=== PATIENT | female | born 1980 | race Caucasian/White ===

== ENCOUNTER 2017-02-03 15:30 | Emergency (ER) | payer MEDICAID, OTHER ==
[2017-02-03 15:54] VITALS: RESP 20
--- NOTE | 2017-02-03 16:53 | CT ---
PROCEDURE: CT HEAD WITHOUT CONTRAST. HISTORY: fall COMPARISON: 03/09/2014 TECHNIQUE: Axial computed tomography images were obtained through the head/brain without intravenous contrast. Radiation dose: Total exam DLP = 769 mGy-cm. This CT exam was performed using one or more of the following dose reduction techniques: Automated exposure control, adjustment of the mA and/or kV according to patient size, and/or use of iterative reconstruction technique. FINDINGS: HEMORRHAGE: No intracranial hemorrhage. BRAIN: No mass effect or edema. Stable hypodensity noted in the left frontal subcortical white matter. VENTRICLES: Unremarkable. No hydrocephalus. CALVARIUM: Unremarkable. PARANASAL SINUSES: Unremarkable as visualized. No significant inflammatory changes. MASTOID AIR CELLS: Unremarkable as visualized. No inflammatory changes. OTHER FINDINGS: None. IMPRESSION: No acute hemorrhage.
[2017-02-03] MEDS ORDERED: Oxycodone/Acetaminophen 5/325 mg Tab PO STA (17:02)
[2017-02-03] MEDS ORDERED: Oxycodone/Acetaminophen 5/325 mg Tab ONE (17:05)
--- NOTE | 2017-02-03 17:26 | RAD ---
PROCEDURE: Radiographs of the Right Shoulder HISTORY: fall COMPARISON: None available. FINDINGS: BONES: No acute displaced fracture. The distal clavicle and underlying ribs appear intact. JOINTS: No acute dislocation. SOFT TISSUES: Soft tissues appear unremarkable. No evidence of radiopaque foreign body. IMPRESSION: No acute displaced fracture or dislocation evident. If symptoms persist or if there is continued clinical concern, x-ray follow-up in 7-10 days should be considered.
--- NOTE | 2017-02-03 17:27 | RAD ---
PROCEDURE: Radiographs of the right humerus. HISTORY: fall COMPARISON: None available. FINDINGS: BONES: No acute displaced fracture or dislocation. SOFT TISSUES: Unremarkable. No evidence of radiopaque foreign body. OTHER FINDINGS: None. IMPRESSION: No acute displaced fracture, dislocation, or significant joint effusion identified. If symptoms persist, or if there is continued clinical concern, x-ray follow-up in 7-10 days should be considered.
--- NOTE | 2017-02-03 17:31 | RAD ---
Indication: Fall Right hip with pelvis Comparison: None available Findings: No acute displaced fracture or dislocation identified. Sacroiliac joints appear intact. Mild constipation. Soft tissues appear unremarkable. No evidence of radiopaque foreign body. Impression: No acute displaced fracture or dislocation evident. If high clinical index of suspicion, suggest cross-sectional imaging for further evaluation. Otherwise, if symptoms persist or if there is continued clinical concern, x-ray follow-up in 7-10 days should be considered.
--- NOTE | 2017-02-03 18:19 | C.PDOC ---
History Of Present Illness 36 y/o female presents to ED who reports she fell off the bed 3 days ago. Patient states she might have lost consciousness, does not know, and states her whole right side hurts. Patient crying in the ER, states her boyfriend recently when asked why. Denies headache, dizziness, chest pain, SOB, nausea , vomiting, new weakness or numbness, or other associated symptoms. - HPI Chief Complaint (Nursing): Upper Extremity Problem/Injury History Per: Patient History/Exam Limitations: no limitations Onset/Duration Of Symptoms: Days Location Of Injury: Right: Arm, Hip, Shoulder Recent travel outside of the [place]: No Past Medical History Reviewed: Historical Data, Nursing Documentation, Vital Signs Vital Signs: Last Vital Signs Temp 98.1 F 02/03/17 18:52 Pulse 94 H 02/03/17 18:52 Resp 20 02/03/17 18:52 BP 104/71 02/03/17 18:52 Pulse Ox 99 02/03/17 18:52 - Medical History PMH: Migraine Family History: States: Unknown Family Hx - Social History Hx Tobacco Use: No Hx Alcohol Use: No Hx Substance Use: No - Immunization History Hx Tetanus Toxoid Vaccination: No Hx Influenza Vaccination: No Hx Pneumococcal Vaccination: No Review Of Systems Except As Marked, All Systems Reviewed And Found Negative. Constitutional: Negative for: Fever, Chills Respiratory: Negative for: Cough Gastrointestinal: Negative for: Nausea, Vomiting Musculoskeletal: Positive for: Shoulder Pain (R), Arm Pain (R), Other (Hip Pain , Right) Skin: Negative for: Rash Neurological: Negative for: Weakness, Numbness Physical Exam - Physical Exam Appears: Non-toxic, Other (tearful, in mild distress) Skin: Normal Color, Warm, Dry Head: Atraumatic, Normacephalic, No Swelling, No Abrasion, No Laceration Eye(s): bilateral: Normal Inspection, PERRL, EOMI Ear(s): Left: Normal, Right: Other (scaling, erythema to posterior ear) Nose: Normal Oral Mucosa: Moist Neck: Normal ROM, No Midline Cervical Tenderness, No Paracervical Tenderness, Supple Chest: Symmetrical, No Tenderness Cardiovascular: Rhythm Regular Respiratory: Normal Breath Sounds, No Rales, No Rhonchi, No Wheezing Gastrointestinal/Abdominal: Soft, No Tenderness Back: Normal Inspection Extremity: Capillary Refill (< 2 sec.), No Deformity, Other (R shoulder and right upper arm: (+) tenderness, decreased ROM. R hip: (+) tenderness. No erythema, bruises, or deformity. ) Extremity: Bilateral: Normal Color And Temperature Neurological/Psych: Oriented x3, Normal Speech, Normal Cognition ED Course And Treatment O2 Sat by Pulse Oximetry: 98 (RA) Pulse Ox Interpretation: Normal - Other Rad R Shoulder XR X-Ray: Viewed By Me, Read By Radiologist Interpretation: Accession No. : [id number]. Patient Name / ID : DEANGELO SAMS / [id number]. Exam Date : 02/03/2017 16:37:42 ( Approved ). Study Comment : Sex / Age : F / 36Y. Creator : Nimo Morrison MD. Dictator : Ctc Operator : Electric Razor Assembler : Nimo Morrison MD. Approver2 : Report Date : 02/03/2017 17:24:32. My Comment : . PROCEDURE: Radiographs of the Right Shoulder. HISTORY: fall. COMPARISON: None available. FINDINGS : BONES: No acute displaced fracture. The distal clavicle and underlying ribs appear intact. JOINTS: No acute dislocation. SOFT TISSUES: Soft tissues appear unremarkable. No evidence of radiopaque foreign body. IMPRESSION: No acute displaced fracture or dislocation evident. If symptoms persist or if there is continued clinical concern, x-ray follow-up in 7-10 days should be considered. R Humerus XR X-Ray: Viewed By Me, Read By Radiologist Interpretation: Accession No. : [id number]. Patient Name / ID : DEANGELO SAMS / [id number]. Exam Date : 02/03/2017 16:39:13 ( Approved ). Study Comment : Sex / Age : F / 36Y. Creator : Nimo Morrison MD. Dictator : Ctc Operator : Electric Razor Assembler : Nimo Morrison MD. Approver2 : Report Date : 02/03/2017 17:25:25. My Comment : . PROCEDURE: Radiographs of the right humerus. HISTORY: fall. COMPARISON: None available. FINDINGS: BONES: No acute displaced fracture or dislocation. SOFT TISSUES: Unremarkable. No evidence of radiopaque foreign body. OTHER FINDINGS: None. IMPRESSION: No acute displaced fracture, dislocation, or significant joint effusion identified. If symptoms persist, or if there is continued clinical concern, x-ray follow-up in 7-10 days should be considered R Hip XR X-Ray: Viewed By Me, Read By Radiologist Interpretation: Accession No. : [id number]. Patient Name / ID : DEANGELO SAMS / [id number]. Exam Date : 02/03/2017 16:40:20 ( Approved ). Study Comment : Sex / Age : F / 36Y. Creator : Nimo Morrison MD. Dictator : Ctc Operator : Electric Razor Assembler : Nimo Morrison MD. Approver2 : Report Date : 02/03/2017 17:30:09. My Comment : . Indication: Fall. Right hip with pelvis. Comparison: None available. Findings: No acute displaced fracture or dislocation identified. Sacroiliac joints appear intact. Mild constipation. Soft tissues appear unremarkable. No evidence of radiopaque foreign body. Impression: No acute displaced fracture or dislocation evident. If high clinical index of suspicion, suggest cross- sectional imaging for further evaluation. Otherwise, if symptoms persist or if there is continued clinical concern, x-ray follow-up in 7-10 days should be considered. - CT Scan/US CT Head Other Rad Studies (CT/US): Read By Radiologist, Radiology Report Reviewed CT/US Interpretation: Accession No. : [id number]. Patient Name / ID : DEANGELO SAMS / [id number]. Exam Date : 02/03/2017 16:19:58 ( Approved ). Study Comment : Sex / Age : F / 36Y. Creator : Melvin Gomes MD. Dictator : Melvin Gomes MD. Ctc Operator : Electric Razor Assembler : Melvin Gomes MD. Approver2 : Report Date : 02/03/2017 16:52:30. My Comment : . PROCEDURE: CT HEAD WITHOUT CONTRAST. HISTORY: fall. COMPARISON: 2013. TECHNIQUE: Axial computed tomography images were obtained through the head/brain without intravenous contrast. Radiation dose: Total exam DLP = 769 mGy-cm. This CT exam was performed using one or more of the following dose reduction techniques: Automated exposure control, adjustment of the mA and/or kV according to patient size, and/or use of iterative reconstruction technique. FINDINGS: HEMORRHAGE: No intracranial hemorrhage. BRAIN: No mass effect or edema. Stable hypodensity noted in the left frontal subcortical white matter. VENTRICLES: Unremarkable. No hydrocephalus. CALVARIUM: Unremarkable. PARANASAL SINUSES: Unremarkable as visualized. No significant inflammatory changes. MASTOID AIR CELLS: Unremarkable as visualized. No inflammatory changes. OTHER FINDINGS: None. IMPRESSION: No acute hemorrhage. Progress Note: Treated with Percocet and Toradol. R hip, R shoulder, R humerus x -rays and CT head ordered/reviewed - negative for acute abnormality. Patient given Xanax and observed in ER. On re-eval, pt feels much better, and is in no acute distress. Advised to f/u with PMD/clinic for further evaluation. Disposition - Disposition Referrals: [facility] [Outside] [facility] [Outside] Disposition: HOME/ ROUTINE Disposition Time: 18:16 Condition: STABLE Additional Instructions: Follow up with your PMD/Clinic within 1-2 days. Return to Ed if feel worse. Prescriptions: Mupirocin 2% Ointment [Bactroban Ointment] 1 appl TP BID #1 tube Ketoconazole 1 gm TP BID #30 cream..g. Ibuprofen [Motrin Tab] 600 mg PO Q8 #30 tab oxyCODONE/Acetaminophen [Percocet 5/325 mg Tab] 1 tab PO QID PRN #20 tab PRN Reason: Pain ALPRAZolam [Xanax] 0.25 mg PO TID #15 tab Instructions: Grief and Loss (ED), Contusion in Adults (ED) Forms: [facility] (Citizen Of [place]) - Clinical Impression Clinical Impression: Multiple contusions, Grief reaction - PA / BUSINESS SUPPORT / Resident Statement MD/DO has reviewed & agrees with the documentation as recorded. - Scribe Statement The provider has reviewed the documentation as recorded by the Scribe All medical record entries made by the Scribe were at my direction and personally dictated by me. I have reviewed the chart and agree that the record accurately reflects my personal performance of the history, physical exam, medical decision making, and the department course for this patient. I have also personally directed, reviewed, and agree with the discharge instructions and disposition.
[2017-02-03 18:53] VITALS: BP 104/71; PULSE 94; TEMP 98.1
[2017-02-03 19:36] VITALS: O2SAT 98
== END 2017-02-03 18:30 | disposition home or self-care (01) ==
LOC: C.ER 15:30
DX: T14.8 Other injury of unspecified body region (principal); W06.XXXA Fall from bed, initial encounter; F43.20 Adjustment disorder, unspecified
CPT/HCPCS: 70450; 73030; 73060; 73502; 96372; 99285; J1885

== ENCOUNTER 2017-02-07 12:41 | Emergency (ER) | payer MEDICAID, OTHER ==
[2017-02-07 12:51] VITALS: RESP 16; TEMP 98.1
[2017-02-07 14:00] VITALS: BP 128/81; PULSE 78
[2017-02-07 14:58] VITALS: O2SAT 100
== END 2017-02-07 13:59 | disposition home or self-care (01) ==
LOC: C.ER 12:41
DX: S90.822A Blister (nonthermal), left foot, initial encounter (principal); X58.XXXA Exposure to other specified factors, initial encounter; Y93.89 Activity, other specified; Y92.9 Unspecified place or not applicable

== ENCOUNTER 2017-02-15 12:00 | Emergency (ER) | payer MEDICAID, OTHER ==
[2017-02-15 12:25] VITALS: BMI 24.3
--- NOTE | 2017-02-15 13:09 | C.PDOC ---
History Of Present Illness 36 yr old female presents to the ER for evaluation of a blister to the plantar aspect of the left foot for the past 1 week. Patient reports she was seen on for same complaints and was drained than. Patient states the blister had worsened and she had drained it once her self. Patient states even after being drained, the blister keeps retuning, states she has been weight bearing on the foot on heel only. States she has been unable to follow up with podiatry due to insurance reasons. Denies fever, chills, nausea, vomiting, leg pain, weakness or numbness in the foot. Time Seen by Provider: 02/15/17 12:31 Chief Complaint (Nursing): Abnormal Skin Integrity History Per: Patient History/Exam Limitations: no limitations Onset/Duration Of Symptoms: Days Past Medical History Reviewed: Historical Data, Nursing Documentation, Vital Signs Vital Signs: Last Vital Signs Temp 98.3 F 02/15/17 17:56 Pulse 65 02/15/17 17:56 Resp 18 02/15/17 17:56 BP 100/61 02/15/17 17:56 Pulse Ox 100 02/15/17 17:56 - Medical History PMH: Migraine Family History: States: No Known Family Hx - Social History Hx Tobacco Use: No Hx Alcohol Use: No Hx Substance Use: No - Immunization History Hx Tetanus Toxoid Vaccination: No Hx Influenza Vaccination: No Hx Pneumococcal Vaccination: No Review Of Systems Constitutional: Negative for: Fever, Chills Gastrointestinal: Negative for: Nausea, Vomiting Musculoskeletal: Negative for: Leg Pain Skin: Positive for: Other ((+) Blister to the planter aspect ) Neurological: Negative for: Weakness, Numbness Physical Exam - Physical Exam Appears: Non-toxic, No Acute Distress Skin: Warm, Dry, No Rash Head: Atraumatic, Normacephalic Oral Mucosa: Moist Extremity: No Calf Tenderness, Capillary Refill (<2), Other ((+) Left foot, planter aspect 5x4 area of dark, fluid filled blister distal to the toes. ) Pulses: Left Dorsalis Pedis: Normal, Right Dorsalis Pedis: Normal Neurological/Psych: Oriented x3, Normal Speech, Normal Motor ED Course And Treatment O2 Sat by Pulse Oximetry: 98 (RA ) Pulse Ox Interpretation: Normal - Other Rad X-Ray - Left Foot X-Ray: Viewed By Me, Read By Radiologist Interpretation: PROCEDURE: Left Foot Radiographs. HISTORY: pain, blister to sole. COMPARISON: None. FINDINGS: BONES: Partial excision of the 4th and 5th proximal phalanges and probably minimally the 5th middle phalanx is suggested. There is focal cortical thickening of the 3rd distal metatarsal shaft. No periosteal type reaction seen to suggest any osteomyelitis. JOINTS: Normal. SOFT TISSUES: At the metatarsal-phalangeal level, plantar soft tissue swelling present probably relating to the clinical history of a blister here. OTHER FINDINGS: None. IMPRESSION: Postop changes. Plantar soft tissue swelling consistent with clinical history of plantar blister. No periosteal reaction to suggest osteomyelitis. Eccentric focal cortical thickening 3rd distal metatarsal shaft probably relating to old healed trauma Progress Note: Spoke to Podiatry resident regarding the patient, state they will come down to evaluate the patient. Medical Decision Making Medical Decision Making: PLAN: * X-Ray - Left Foot * POC * pt seen by podiatry resident. blister has been unroofed and betadine dressing applied. pt has ortho shoe. pt to f/u with Dr Tang on Tuesday. pt agreed to hepatitis and hiv testing; podiatry resident cut herself while working in patient . Disposition Discussed With .: Gabbie Tang Doctor Will See Patient In The: Office Counseled Patient/Family Regarding: Diagnosis, Need For Followup - Disposition Referrals: Gabbie Tang DPM [Staff Provider] - Disposition: HOME/ ROUTINE Disposition Time: 17:49 Condition: STABLE Additional Instructions: Keep clean and dry; use orthopedic shoe. change dressing daily. FOllow up with Dr De on Tuesday- call tomorrow to make an appointment. Tylenol or Motrin for pain. Forms: [facility] (Latvian), General Discharge Instructions - Clinical Impression Clinical Impression: Traumatic hematoma of foot - PA / FIELD SERVICE ENGINEER / Resident Statement MD/DO has reviewed & agrees with the documentation as recorded. - Scribe Statement The provider has reviewed the documentation as recorded by the Scribe Lissa Ny All medical record entries made by the Scribe were at my direction and personally dictated by me. I have reviewed the chart and agree that the record accurately reflects my personal performance of the history, physical exam, medical decision making, and the department course for this patient. I have also personally directed, reviewed, and agree with the discharge instructions and disposition.
--- NOTE | 2017-02-15 13:32 | RAD ---
PROCEDURE: Left Foot Radiographs. HISTORY: pain, blister to sole COMPARISON: None. FINDINGS: BONES: Partial excision of the 4th and 5th proximal phalanges and probably minimally the 5th middle phalanx is suggested. There is focal cortical thickening of the 3rd distal metatarsal shaft. No periosteal type reaction seen to suggest any osteomyelitis JOINTS: Normal. SOFT TISSUES: At the metatarsal-phalangeal level, plantar soft tissue swelling present probably relating to the clinical history of a blister here. OTHER FINDINGS: None. IMPRESSION: Postop changes. Plantar soft tissue swelling consistent with clinical history of plantar blister. No periosteal reaction to suggest osteomyelitis. Eccentric focal cortical thickening 3rd distal metatarsal shaft probably relating to old healed trauma
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
[2017-02-15 17:56] VITALS: BP 100/61; PULSE 65; RESP 18; TEMP 98.3
[2017-02-17 12:41] VITALS: O2SAT 98
== END 2017-02-15 17:56 | disposition home or self-care (01) ==
LOC: C.ER 12:00
DX: S90.822D Blister (nonthermal), left foot, subsequent encounter (principal); X58.XXXD Exposure to other specified factors, subsequent encounter

== ENCOUNTER 2017-07-01 22:01 | Emergency (ER) | payer MEDICAID, OTHER ==
[2017-07-01 22:02] VITALS: BMI 24.3
[2017-07-01 22:09] VITALS: TEMP 97.6
[2017-07-01] MEDS ORDERED: DiphenhydrAMINE 50 mg/ml Inj IVP STA (22:31)
[2017-07-01] MEDS ORDERED: Sodium Chloride 0.9% 1,000 ML IV ONE (22:31)
[2017-07-01] MEDS ORDERED: DiphenhydrAMINE 50 mg/ml Inj ONE (22:36)
--- NOTE | 2017-07-01 22:48 | C.PDOC ---
History Of Present Illness 37 year old female presents to the ER with a complaint of a migraine headache for the past week that has worsened today. Patient states the pain is a left sided pressure sensation, associated with light sensitivity. She took an ibuprofen at 19:00 (without relief) and notes it is similar to prior migraines. Denies nausea, vomiting, fever, changes in vision. Time Seen by Provider: 07/01/17 22:13 Chief Complaint (Nursing): Headache History Per: Patient History/Exam Limitations: no limitations Onset/Duration Of Symptoms: Days Current Symptoms Are (Timing): Still Present Severity: Moderate Quality: Pressure, "Pain" Preceeding Symptoms: None Associated Symptoms: Photophobia. denies: Blurred Vision, Nausea, Vomiting, Extremity Weakness Recent travel outside of the [place]: No Past Medical History Reviewed: Historical Data, Nursing Documentation, Vital Signs Vital Signs: Last Vital Signs Temp 97.6 F 07/01/17 22:04 Pulse 95 H 07/01/17 22:04 Resp 20 07/01/17 22:04 BP 126/93 H 07/01/17 22:04 Pulse Ox 100 07/02/17 00:10 - Medical History PMH: Migraine Family History: States: No Known Family Hx - Social History Hx Tobacco Use: No Hx Alcohol Use: No Hx Substance Use: No - Immunization History Hx Tetanus Toxoid Vaccination: No Hx Influenza Vaccination: Yes Hx Pneumococcal Vaccination: No Review Of Systems Except As Marked, All Systems Reviewed And Found Negative. Constitutional: Negative for: Fever Cardiovascular: Negative for: Chest Pain Respiratory: Negative for: Shortness of Breath Gastrointestinal: Negative for: Nausea, Vomiting Skin: Negative for: Rash Neurological: Positive for: Headache, Other (Photophobia). Negative for: Weakness, Numbness, Incoordination Physical Exam - Physical Exam Appears: Well, Non-toxic, Other (Moderate pain, Tearful) Skin: Normal Color, Warm, Dry, No Rash Head: Atraumatic, Normacephalic Eye(s): bilateral: Normal Inspection, PERRL, EOMI Oral Mucosa: Moist Neck: Normal, Supple Cardiovascular: Rhythm Regular Respiratory: Normal Breath Sounds, No Rales, No Rhonchi, No Wheezing Neurological/Psych: Oriented x3, Normal Speech, Normal Cognition Gait: Steady ED Course And Treatment O2 Sat by Pulse Oximetry: 100 (Room air) Pulse Ox Interpretation: Normal Progress Note: Patient given IV NS bolus, IV reglan, IV benadryl and IV toradol. Reevaluation Time: 00:05 Reassessment Condition: Improved (Patient reassessed, states her headache has resolved and she feels much better. Patient given Rx for Fiorecet, and she was instructed to follow up with PMD in 1-2 days. She understands she should return to ED if she has worsening symptoms.) Disposition Counseled Patient/Family Regarding: Studies Performed, Diagnosis, Need For Followup, Rx Given - Disposition Referrals: Maki Leon MD [Medical Doctor] - Disposition: HOME/ ROUTINE Disposition Time: 00:10 Condition: STABLE Additional Instructions: FOLLOW UP WITH YOUR DOCTOR IN 1-2 DAYS USE MEDICATION NEEDED FOR HEADACHES RETURN TO ER IF SYMPTOMS WORSEN Prescriptions: Acetaminophen/Butalbital/Caf [Fioricet] 1 tab PO TID PRN #20 tab PRN Reason: Headache Instructions: Migraine Headache (ED) Forms: [employer] (Greek) Print Language: ANGUILLAN - Clinical Impression Clinical Impression: Migraine - Scribe Statement The provider has reviewed the documentation as recorded by the Scribjeremi White All medical record entries made by the Dinorahibjeremi were at my direction and personally dictated by me. I have reviewed the chart and agree that the record accurately reflects my personal performance of the history, physical exam, medical decision making, and the department course for this patient. I have also personally directed, reviewed, and agree with the discharge instructions and disposition.
[2017-07-02 00:21] VITALS: BP 133/84; PULSE 70; RESP 16; O2SAT 98
== END 2017-07-02 00:20 | disposition home or self-care (01) ==
LOC: C.ER 22:01
DX: G43.909 Migraine, unspecified, not intractable, without status migrainosus (principal)
CPT/HCPCS: 96361; 96374; 96375; 99284; J1200; J1885; J2765; J7040

== ENCOUNTER 2017-12-19 14:56 | Emergency (ER) | payer MEDICAID, OTHER ==
[2017-12-19 14:56] VITALS: BMI 24.3
[2017-12-19 15:15] VITALS: BP 119/80; PULSE 87; RESP 20; TEMP 98.9; O2SAT 100
[2017-12-19] MEDS ORDERED: DiphenhydrAMINE 12.5 mg/5 ml LIQ UD (5 ml) PO STA (16:28)
--- NOTE | 2017-12-19 16:29 | C.PDOC ---
History Of Present Illness 37yo female, comes to ED with complaints of headache, nasal congestion, and throat discomfort. Patient has seasonal allergies but has not taken any medications today. She presents to ED s/p outpatient psychiatric visit. Time Seen by Provider: 12/19/17 16:22 Chief Complaint (Nursing): ENT Problem History Per: Patient History/Exam Limitations: no limitations Onset/Duration Of Symptoms: Days Current Symptoms Are (Timing): Still Present Location Of Pain: Throat, Headache Past Medical History Reviewed: Historical Data, Nursing Documentation, Vital Signs Vital Signs: Last Vital Signs Temp 98.9 F 12/19/17 15:12 Pulse 87 12/19/17 15:12 Resp 20 12/19/17 15:12 BP 119/80 12/19/17 15:12 Pulse Ox 100 12/19/17 19:04 - Medical History PMH: Migraine Surgical History: No Surg Hx Family History: States: No Known Family Hx, Unknown Family Hx - Social History Hx Tobacco Use: No Hx Alcohol Use: No Hx Substance Use: No - Immunization History Hx Tetanus Toxoid Vaccination: No Hx Influenza Vaccination: Yes Hx Pneumococcal Vaccination: No Review Of Systems Except As Marked, All Systems Reviewed And Found Negative. Constitutional: Negative for: Fever, Chills ENT: Positive for: Nose Congestion, Throat Pain Respiratory: Positive for: Cough Physical Exam - Physical Exam Appears: Non-toxic, No Acute Distress Skin: Normal Color, Warm, Dry Head: Atraumatic, Normacephalic Eye(s): bilateral: Normal Inspection Ear(s): Bilateral: Normal Nose: Other (erythematous nasal passages) Oral Mucosa: Moist Throat: Normal, No Erythema, No Exudate, No Drooling, No Mass Neck: Normal ROM, Supple Chest: Symmetrical Cardiovascular: Rhythm Regular Respiratory: Normal Breath Sounds, No Rales, No Rhonchi, No Wheezing Extremity: Normal ROM, No Pedal Edema Neurological/Psych: Oriented x3 ED Course And Treatment O2 Sat by Pulse Oximetry: 100 (RA) Pulse Ox Interpretation: Normal Medical Decision Making Medical Decision Making: exacerbation of seasonal allergies, has not taken an usual allergy meds today normal exam. Disposition Doctor Will See Patient In The: Office Counseled Patient/Family Regarding: Studies Performed, Diagnosis - Disposition Referrals: Curtis Macdonald MD [Staff Provider] - Disposition: HOME/ ROUTINE Disposition Time: 16:29 Condition: GOOD Additional Instructions: continue Flonase, Claritin daily- sinus headaches improve with treatment of seasonal allergies Continue tylenol/motrin as needed for headaches. Instructions: Seasonal Allergies in Adults, Sinus Headache (DC) Forms: [employer] ([place]) - Clinical Impression Clinical Impression: Seasonal allergies, Headache - Scribe Statement The provider has reviewed the documentation as recorded by the Scribe (Maureen Coyne) Provider Attestation: All medical record entries made by the Scribe were at my direction and personally dictated by me. I have reviewed the chart and agree that the record accurately reflects my personal performance of the history, physical exam, medical decision making, and the department course for this patient. I have also personally directed, reviewed, and agree with the discharge instructions and disposition.
== END 2017-12-19 16:38 | disposition home or self-care (01) ==
LOC: C.ER 14:56
DX: J30.2 Other seasonal allergic rhinitis (principal); R51 Headache